=== PATIENT | male | born 1980 | race Asian ===

== ENCOUNTER 2016-08-14 14:54 | Inpatient (IN) | payer OTHER ==
[2016-08-14] VITALS (8 sets, daily range): BP systolic 106–128; BP diastolic 57–83; PULSE 58–88; RESP 13–18; O2SAT 96–99
[~2016-08-14] VITALS: Ht 167.6 cm; Wt 83.3 kg
[~2016-08-14 14:54] MED LIST: Dexamethasone 4 mg/mL Inj ONE; Glycopyrrolate 0.2 MG/ML 1mL Inj ONE; Neostigmine 1 mg/mL 10 mL Inj ONE; Ondansetron 2 mg/mL 2 mL Inj ONE; Propofol 10,000 mCg/mL 20 mL Inj ONE; Rocuronium 10 mg/mL 5 mL Inj ONE; Succinylcholine Chloride 20 mg/mL 5 mL Inj ONE; fentaNYL-PF 50 mCg/mL 2 mL Inj ONE
--- NOTE | 2016-08-14 15:49 | ED.REPORT ---
HPI-Abd Pain M Under 40 Date of Service Aug 14, 2016 ED Provider: Lorenzo Rincon DO The patient is a healthy 35 year old male who presents to the ED from Urgent Care with RLQ abdominal pain concerning for appendicitis onset four days ago. The patient also reports decreased appetite. He denies other symptoms. The patient had a normal bowel movement today. His CT scan from indicated "Inflammatory changes around the cecum and appendix most consistent with appendicitis probably rupture or periappendiceal abscess." At the patient was found to have a pulse of 89, a respiration rate of 20, and a temperature of 99.2. His CMP was normal and his CBC was remarkable for a WBC of 11.7. His Lipase was normal and his CRP was 8.1. The patient's last meal was last night. Nursing Notes Stated Complaint: APPENDECTOMY/SENT FROM URGENT CARE Chief Complaint: Male Abdominal Pain Nursing Notes Reviewed: Yes Allergies: Coded Allergies: No Known Allergies (Unverified , 08/14/16) No Active Prescriptions or Reported Meds General Time Seen by MD: 15:29 Chief Complaint Abdominal pain Hx Obtained From: Patient Arrived By: Walk-in Sudden in Onset?: No Onset Occurred: 4 days ago Symptom Duration: Since onset Location: : RLQ Quality: Painful Severity: Current: Moderate Severity: Maximum: Moderate Pertinent Negative: Relieved by nothing Recent Healthcare: Recent doctor visit Past Medical History Past Medical History None reported Past Surgical History Cyst removed from back of ear/neck Smoking History Never Smoker Social History Other Social History: Good social support Occupation [employer] Ambulatory Status Independent Review of Systems Review of Systems Note: + Decreased appetite Constitutional: Denies: Fever Respiratory: Denies: Non-productive cough, Shortness of breath GI: Reports: Abdominal pain (RLQ), Denies: Diarrhea, Vomiting Complete sys rev & neg: except as marked. Physical Exam Initial Vital Signs Vital Signs (First) Date Time Temp Pulse Resp B/P Pulse Ox O2 Delivery O2 Flow Rate FiO2 08/14/16 15:34 36.8 88 16 128/83 96 Room Air Initial VS: Reviewed Head / Eyes: Atraumatic, Normocephalic ENT: Conjunctiva normal, No scleral icterus Neck: Supple, Full range of motion Skin: Warm, Dry, No cyanosis Neurologic: Alert, Oriented, Nonfocal Psychiatric: Mood/affect normal, Behavior normal, Normal thought content General/Constitutional: Awake, Alert, No acute distress Respiratory / Chest: Breath sounds NL, Breath sounds = bilat, No respiratory distress Cardiovascular: Heart rate NL, Regular rhythm, Heart sounds NL Abdomen: Soft, No guarding, No rebound Tenderness/Guarding/Rebound: Positive: Tender RLQ... Interpretation & Diagnostics CT ABDOMEN AND PELVIS W/ IV AND ORAL CONTRAST from Urgent Care 08/14/16: IMPRESSION: Inflammatory changes around the cecum and appendix most consistent with appendicitis probably rupture or periappendiceal abscess and small amount of free fluid in the cul-de-sac. Dictated by: Arnie Worrell M.D. on 08/14/2016 at 13:34 on 08/14/2016 at 13:27 Dr. Jacobs is aware of these findings Lab Results Interpretation Result Diagram: 08/16/16 0440 Re-Eval/Medical Decision Med Decision/Clinical Course 35-year-old male with an unremarkable past medical history presents with appendicitis. There are no signs of sepsis at this time. CT was remarkable for possible perforation versus periappendiceal abscess. Patient was treated with Cipro and Flagyl while waiting for surgery. took the patient to the OR directly from the ER. Re-Evaluation/Progress #1: Time of Eval: 16:24 Patient Status: Condition improved Re-Evaluation/Progress Note: Patient rechecked. Discussed plan for surgery consult. Re-Evaluation/Progress #2: Time of Eval: 17:35 Patient Status: Condition improved Re-Evaluation/Progress Note: Discussed with patient surgical consult, diagnosis, and plan for admission to the OR. Patient agrees with plan for care and all questions were addressed. Consultation : Referral / Consult Name: Kip Ryan MD Consulted With: Surgeon Call Returned at: 17:18 [employer]: Agrees with eval, Agrees with plan, Accepts admit Note: Patient was evaluated by Dr. Ryan. He will be taken directly to the OR. Counseled Regarding: Diagnosis, Need for admission Patient Discharge & Departure Primary Impression: Appendicitis Appendicitis type: acute appendicitis Acute appendicitis type: with localized peritonitis Qualified Code: K35.3 - Acute appendicitis with localized peritonitis Additional Impressions: Leukocytosis Right lower quadrant abdominal pain Disposition: ADMITTED TO HOSPITAL Discharge Condition All VS Reviewed: Yes Condition: Stable Referrals: NOPCP (PCP) Scribe Attestation Portions of this note were transcribed by Barbara Jordan Dr. Andelin, personally performed the history, physical exam, and medical decision-making; I reviewed and confirmed the accuracy of the information in the transcribed note. Signed by: Kyung Rao, 08/14/2016, 22:15 Lorenzo Rincon DO Aug 14, 2016 15:49 BARBARA ELIZABETH Aug 14, 2016 15:56
[2016-08-14] MEDS ORDERED: 0.9% Sodium Chloride 1,000 ML IV ONE (16:26)
[2016-08-14] MEDS ORDERED: Ciprofloxacin Inj 500 MG in IV Premix 1 EACH IV ONE (16:30)
[2016-08-14] MEDS ORDERED: metroNIDAZOLE Inj 500 MG in IV Premix 1 EACH IV ONE (16:30)
[2016-08-14] MEDS ORDERED: levoFLOXacin Inj 750 MG in IV Premix 1 EACH IV ONE (16:40)
--- NOTE | 2016-08-14 18:20 | NUR ---
ADMIT Please see to current admission info. Pt was originally a direct admit from urgent care then had to go to ER and be admitted through ER. Admission was already complete prior to back tracking to ER.
--- NOTE | 2016-08-14 18:38 | HP ---
[address] [address] HISTORY AND PHYSICAL PATIENT: AMBIKA HERNANDES : 1980 MR#: [id number] ADMIT: 08/14/2016 JOB ID: [id number] CHIEF COMPLAINT/IDENTIFICATION: This is a 35-year-old man with appendicitis. HISTORY OF PRESENT ILLNESS: The patient noted onset of right lower quadrant pain and no other symptoms beginning Tuesday and has progressively gotten worse. No fever, no nausea, no vomiting. No diarrhea. No chills. He was seen in urgent care, where a CAT scan was used to diagnosis him with appendicitis. PAST MEDICAL HISTORY: Unremarkable. MEDICATIONS: None. ALLERGIES: No known drug allergies. 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 He is in the emergency department with his parents, who will be able to help him out with any surgical recovery. FAMILY HISTORY: Noncontributory. REVIEW OF SYSTEMS: Negative. PHYSICAL EXAMINATION: Afebrile, pulse is 83. Blood pressure is 128/83. He is in no acute distress. Sclerae are clear. Neck is supple. Lungs are clear. Heart sounds are regular. He has mild right lower quadrant tenderness to palpation with some fullness. LABORATORY DATA: White count is 11.5, otherwise normal labs. IMAGING: He has CAT scan that I reviewed, both the report and the images. Findings are consistent with appendicitis, though he does have a fair amount of inflammation around the cecum. IMPRESSION AND PLAN: I believe he likely has appendicitis and we have talked about his options for treatment. I have recommended laparoscopic appendectomy, though we have discussed the option of nonoperative management with antibiotics. He will follow my recommendation and we will proceed with laparoscopic appendectomy later today.
[2016-08-14] MEDS ORDERED: Lactated Ringer's 1,000 ML IV SCH (20:12)
[2016-08-14] MEDS ORDERED: Lactated Ringer's 500 ML IV PRN (20:12)
[2016-08-14] MEDS ORDERED: fentaNYL-PF 50 mCg/mL 2 mL Inj IVPUSH PRN (20:15)
[2016-08-14] MEDS ORDERED: Phenylephrine 10,000 mCg/mL Inj IVPUSH PRN (20:15)
[2016-08-14] MEDS ORDERED: Ondansetron 2 mg/mL 2 mL Inj IVPUSH PRN ×2 (20:15→22:50)
[2016-08-14] MEDS ORDERED: EPHEDrine Sulfate 50 mg/mL Inj IVPUSH PRN (20:15)
[2016-08-14] MEDS ORDERED: MetoCLOpramide 5 mg/mL 2 mL Inj IVPUSH PRN (20:15)
[2016-08-14] MEDS ORDERED: HYDROmorphone 1 mg/mL Inj IVPUSH PRN (20:15)
[2016-08-14] MEDS ORDERED: Dexamethasone 4 mg/mL Inj IVPUSH PRN (20:15)
--- NOTE | 2016-08-14 21:41 | PCM.HPANE ---
Patient Data Surgeon Admitting Provider:Kip Ryan MD Attending Provider:Kpi Ryan MD Primary Care Physician:Nopkalpesh Other Provider: Reason for Visit Appendicitis Ht/WT & BMI Height (Feet): 5 Height (Inches): 6 Weight (Kilograms): 77.27 Body Mass Index Allergies Coded Allergies: No Known Allergies (Unverified , 08/14/16) Past Anesthesia History Anesthesia History: Denies:: Abnormal Airway, Anesthesia Reactions, Difficult Intubation, Fam Anesthesia Reaction, Fam Malignant Hypertherm, Malignant Hyperthermia Diabetes History Hx Diabetes?: No MRSA MRSA: No Medications No Active Prescriptions or Reported Meds History History of ENT Problems?: No HEENT History: Denies:: Cataracts Dysphagia Sinus Problem Denture Type: None Teeth Condition: Within Normal Limits Hx of Heart Problems?: No Cardiovascular History: Denies:: Congestive Heart Failure Hypertension Hx of Respiratory Problem?: No Respiratory History: Denies:: Tuberculosis Hx Neurologic Problems?: No Hx of GI Problems?: No Other History/Comment Appendicitis Hx of Problems?: No Genitourinary History: Denies:: Kidney Stones Urinary Tract Infection Male Hx: Denies:: Prostate Problems Scrotal Mass Testicular Surgery Hx Musculoskeletal Problems?: No Hx of Psycho/Social Problems?: No Hx Surgeries?: Yes (cyst removed back of ear/neck) Hx Any Other Health Problems?: No Other History: Denies:: Cancer Hospitalization Thyroid Disease History Blood Transfusions: Denies:: Blood Transfuse Reaction Blood Transfusions Hx Diabetes: No Hx Alcohol Use: NoHx Substance Use: No Smoking Status: Never Smoker Have You Smoked inLast 12 mo: No Stop/Bang Treated for Sleep Apnea?: No Do You Have a CPAP Machine?: No Risk Assessment Category Category 1A: Patient has history of documented sleep apnea, and HAS NOT received any narcotic, sedative or anesthesia administration during this stay. Category 1B: Patient has history of documented sleep apnea, and HAS received any narcotic , sedative or anesthesia administration during this stay Category 2: Patient has SUSPECTED Obstructive Sleep Apnea, and HAS received any narcotic , sedative or anesthesia administration during this stay. Category 3: Patient has SUSPECTED Obstructive Sleep Apnea and HAS NOT received narcotic, sedative or anesthesia administration during this stay. Category 4: Outpatient in Procedural Areas with known sleep apnea or who screen positive for High Risk via the STOP/BANG questionnaire. Exam Exam Vital Signs Vital Signs Date Time Temp Pulse Resp B/P Pulse Ox O2 Delivery O2 Flow Rate FiO2 08/14/16 20:55 37.1 82 16 122/70 99 Room Air 08/14/16 17:58 37.2 83 16 118/69 98 Room Air 08/14/16 15:34 36.8 88 16 128/83 96 Room Air General Appearance: Alert, Oriented X3, Cooperative, No Acute Distress HEENT/AIRWAY: MP 2 Lungs: Clear to Auscultation, Normal Air Movement Heart: Exam Unremarkable, Regular Rate/Rhythm, No Murmurs/Rubs/Gallops Meds/Labs/Diagnostics Admission Meds Current Medications Sodium Chloride 1,000 ml @ 0 mls/hr Q0M ONCE IV Last administered on 16:48; Start 08/14/16 at 16:26; Stop 08/14/16 at 16:28; Status DC Metronidazole/ Sodium Chloride 500 mg/Premix 100 ml @ 200 mls/hr ONCE ONCE IV Last administered on 08/14/16 16:49; Start 08/14/16 at 16:30; Stop 08/14/16 at 16:59; Status DC Levofloxacin/ Dextrose 750 mg/ Premix 150 ml @ 150 mls/hr ONCE ONCE IV Last administered on 08/14/16 17:30; Start 08/14/16 at 16:40; Stop 08/14/16 at 17:39 ; Status DC Lactated Ringer's (Lr) 1,000 ml @ 120 mls/hr Q8H20M IV Last administered on 20:54; Start 08/14/16 at 20:12; Stop 08/15/16 at 04:11 Plan Impression Patient chart reviewed, patient interviewed and anesthestic plan with risks, benefits, and alternatives discussed, and informed consent obtained. ASA Physical Status: ASA2 Mod Systemic Disease Anesthetic Plan: GA Bene/Risks/Altern/Consents: Yes HP Complete Prior to Induction: Yes Kip Bunch MD Aug 14, 2016 21:41
[2016-08-14] MEDS ORDERED: Lactated Ringer's 1,000 ML IV ONE (21:48)
[2016-08-14] MEDS ORDERED: Bupivacaine-MPF 0.5% W/EPI 30 mL Inj INFILTRATE ONE (22:06)
[2016-08-14] MEDS ORDERED: Acetaminophen IV 1,000 MG in IV Premix 1 EACH IV PRN (22:50)
[2016-08-14] MEDS ORDERED: diphenhydrAMINE 25 mg Capsule PO PRN (22:50)
--- NOTE | 2016-08-14 22:55 | PCM.ANEP1 ---
Post Anesthesia PACU Phase 1 Assessment Vital Signs Vital Signs Date Time Temp Pulse Resp B/P Pulse Ox O2 Delivery O2 Flow Rate FiO2 08/14/16 22:50 36.5 60 17 120/68 96 Room Air 08/14/16 20:55 37.1 82 16 122/70 99 Room Air 08/14/16 17:58 37.2 83 16 118/69 98 Room Air 08/14/16 15:34 36.8 88 16 128/83 96 Room Air Anesthetic Administered: GA Level of Alertness: Sleepy, easy to arouse ORTEGA's with Equal Strength: Yes Pain: No Nausea or Vomiting: No CV Function & Hydration Stable: Yes Airway Device: Oxygen Delivery: Room Air Lungs: Clear to Auscultation, Normal Air Movement Dermatome Level: Full Sensation PACU Phase 2 Assessment Complications: No Follow up Care: N/A Patient Instructions Provided: N/A Kip Bunch MD Aug 14, 2016 22:55
[2016-08-14] MEDS: Lactated Ringer's 1,000 ML IV SCH (23:22)
--- NOTE | 2016-08-14 23:50 | NUR ---
Post Op Patient to room 1002 around 2315 from PACU. Able to scoot from OR stretcher to OSC bed independently. Sleepy, but A&Ox3, answering questions appropriately. States pain is tolerable: "I could sleep through this." IV patent. Family @ bedside. Oriented to room and call light. Addendum: 08/15/16 at 0531 by SONAL CHONG RN Patient unable to void so far this shift. Refusing offer to bladder scan/possible Kirkpatrick at this point. Wants to drink more water and try to pee again on his own, stating, "he feels a bit dehydrated."
[2016-08-15] MEDS: Piperacillin-Tazo 3.375 Gm Inj 3.375 GM in Dextrose 5% Minibag Plus 50 ML IV SCH ×3 (00:29→15:58)
[2016-08-15 04:07] LABS: BASOPHILS % (AUTO) 0.1 % (0-3); EOSINOPHILS % (AUTO) 0 % (0-5); Mean Corpuscular Hemoglobin 29.4 pg (27.0-35.0); Mean Corpuscular Volume 89.5 fL (81-100); NEUTROPHILS % (AUTO) 87.3 % (40-74); Platelet Count 198 bil/L (150-400)
[2016-08-15 05:11] VITALS: BP 116/66; PULSE 92; RESP 18; O2SAT 98
--- NOTE | 2016-08-15 07:56 | NUR ---
Activity Patient ambulated to restroom, SBA. Given urinal, explained that if he did not void, a catheter would need to be placed. He stated he did not want that and would try void.
[2016-08-15 09:07] VITALS: BP 114/68; PULSE 74; RESP 16; O2SAT 96
[2016-08-15] MEDS: Lactated Ringer's 1,000 ML IV SCH (12:04)
[2016-08-15 13:12] VITALS: BP 120/77; PULSE 79; RESP 16; O2SAT 97
--- NOTE | 2016-08-15 13:33 | NUR ---
Social Work- Brief Note/ Readiness for Discharge Data: EMR reviewed. Pt is a 35 year old male admitted 08/14/16 for appendicitis per H&P. Pt is not medically ready for discharge today, likely to discharge in 1-2 more days. Pt's insurance is [facility]. Pt has no PCP. Pt's NOK is Sebastien Kramer, father, . SW met with pt at bedside regarding discharge plan, SW role explained. Pt alert and oriented x3. Pt resides in [place] in a home where he is independent at baseline. Pt drives. Pt has no PCP listed, pt requested that SW make PCP appointment at [facility] in [place]. [facility] is closed, as it is a weekend, but SW to follow up with this request Tuesday. Pt to discharge home with parents to transport via POV. No discharge needs identified at this time. SW will continue to follow. Assessment: Pt who is independent at baseline. Plan: SW to follow up with [facility] Tue to schedule PCP appointment. Pt to discharge home with parents to transport via POV. No discharge needs identified at this time. SW will continue to follow. SOPHIA Mayfield
--- NOTE | 2016-08-15 14:39 | PROG NOTE ---
[address] [address] PROGRESS NOTE PATIENT: AMBIKA HERNANDES : 1980 MR#: [id number] ADMIT: 08/14/2016 JOB ID: [id number] DATE: 08/15/2016 NOTE: Postop day one laparoscopic appendectomy for perforated appendicitis. T-max 36.9, vital signs are within normal limits. As expected, he is having more pain postoperatively than he did preop. Lawrence-Coley drain is putting out serosanguineous fluid and has had 40 cc since midnight. On exam, his abdomen is soft, his incisions are without sign of infection. White count is down to 12.6. His hematocrit is 44. IMPRESSION/PLAN: Doing well. We have reviewed the intraoperative findings. He will need to be on IV antibiotics at least until tomorrow. If his white count is down to normal, he can be switched over to oral antibiotics and even discharged, though I would like him to have the drain in at least until the middle of the week until drainage is minimal. I think he is at high risk for postoperative abscess and I discussed this with the patient.
--- NOTE | 2016-08-15 15:12 | OP ---
[address] [address] OPERATIVE REPORT PATIENT: AMBIKA HERNANDES : 1980 MR#: [id number] ADMIT: 08/14/2016 JOB ID: [id number] DATE OF SURGERY: 08/14/2016 PREOPERATIVE DIAGNOSIS(ES): Appendicitis. POSTOPERATIVE DIAGNOSIS(ES): Appendicitis with perforation. SURGEON: Kip Ryan MD. NATUROPATHIC PHYSICIAN: aNdine Butler RN FA INDICATIONS: A 35-year-old man with signs and symptoms consistent with appendicitis. By history and CT scan, there is some consideration of perforation and option of antibiotic treatment rather than immediate operation was discussed with the patient, though recommendation for surgery was made. FINDINGS: 1. A surgical asst was necessary for camera operation. 2. Patient did have perforated appendicitis. 3. Successful laparoscopic appendectomy for perforated appendicitis, including amputation of appendix that was found in pieces. Drain was left, as described below. PROCEDURE: The patient brought to the operating room. SCOAP protocol was followed. He received perioperative antibiotics within an hour of the incision. Veress needle was placed. Obtained access. We placed three ports. There was no free fluid. The appendix was walled off by the terminal ileum and cecum. We peeled the terminal ileum off and encountered a pus pocket which was controlled with the suction. There was not widespread spillage of the pus. We now proceeded to use a combination of blunt and cautery dissection to identify the appendix that was basically in two pieces. The tip was removed 1st and then the proximal appendix was mobilized including part of the cecum and we used the endoscopic stapler to amputate the appendix and the mesoappendix at its base. Specimen was removed in a bag to avoid wound contamination. We then proceeded with a copious amount of irrigation, keeping almost all of the irrigation locally, as there had not been widespread signs of spread nor did he have diffuse peritonitis preoperatively. We suctioned out all of our irrigant and then placed a 19-Indian Lawrence-Coley drain down in the pelvis, looping up with the tip in the area of the abscess. We removed our ports, secured the drain with a nylon suture, and closed the wounds with absorbable suture. The patient tolerated the procedure well.
[2016-08-15 16:55] VITALS: BP 114/71; PULSE 74; RESP 16; O2SAT 97
[2016-08-15 21:00] VITALS: BP 104/63; PULSE 71; RESP 16; O2SAT 99
[2016-08-16 00:49] VITALS: BP 109/62; PULSE 72; RESP 16; O2SAT 95
[2016-08-16] MEDS: Piperacillin-Tazo 3.375 Gm Inj 3.375 GM in Dextrose 5% Minibag Plus 50 ML IV SCH ×3 (00:49→17:01)
--- NOTE | 2016-08-16 03:45 | NUR ---
Activity Pt reports little to no pain 03/16 and has denied need for pain meds this shift. Pt was up to bathroom, independently and steady on feet. The umbilical dressing was changed with gauze and tegaderm, the other 2 lap sites were CDI. SUSAN drain intact and has had out 20 ml sanguinous drainage so far. Pt reporting minimal gas and denies nausea.
[2016-08-16] MEDS: Lactated Ringer's 1,000 ML IV SCH ×3 (04:57→23:20)
[2016-08-16 05:32] VITALS: BP 111/71; PULSE 77; RESP 18; O2SAT 94
[2016-08-16 05:54] LABS: BASOPHILS % (AUTO) 0.2 % (0-3); EOSINOPHILS % (AUTO) 1.1 % (0-5); Mean Corpuscular Hemoglobin 29.8 pg (27.0-35.0); Mean Corpuscular Volume 90.6 fL (81-100); NEUTROPHILS % (AUTO) 63.2 % (40-74); Platelet Count 196 bil/L (150-400)
[2016-08-16 08:56] VITALS: BP 112/66; PULSE 92; RESP 19; O2SAT 97
--- NOTE | 2016-08-16 09:22 | NUR ---
GI Abd round and slightly firm. Pt states it looks and feels "bloated." Bowel tones present, but hypoactive. Pt denies flatus and bowel movement. Complains of abd pain 6/10, "worse than before the surgery." Pt unable to describe nature of pain, but indicates entire abdomen. Tolerates diet and denies any increased pain or nausea with eating. Dressing CDI, SUSAN draining sanguineous fluid. Emptied 90cc at 07:50. Ambulated in room and up to chair for breakfast, plan to ambulate in hallways this morning.
--- NOTE | 2016-08-16 10:02 | PCM.PNSURG ---
Subjective Date of Service: Aug 16, 2016 Date of Service: Aug 16, 2016 Visit Information: Reason for Visit Appendicitis Surgery/Surgery Date Post-Op Day # 2 s/p lap appy Date of Admission: Aug 14, 2016 at 18:03 Hospital Day # Subjective: Patient reports continued abdominal discomfort. Tolerating po. No n/v. Feels bloated. Denies f/c. Drain output continues high. Postop General: No Shortness of Breath, No Chest Pain Gastrointestinal: Tolerating Oral Feedings, No N/V Pain Management: PO, Continued Pain Issues Objective Vital Sign- Last 8 Hours Date Time Temp Pulse Resp B/P Pulse Ox O2 Delivery O2 Flow Rate FiO2 08/16/16 08:56 36.7 92 19 112/66 97 Room Air 08/16/16 05:32 37.1 77 18 111/71 94 Room Air Intake and Output- Last 8 Hour 08/16/16 Cumulative From/Thru 07:00 08/14/16 15:34 - 08/16/16 05:32 Intake Total 1421 ml 4854 ml Output Total 1120 ml 3330 ml Balance 301 ml 1524 ml Intake Oral 550 ml 1810 ml IV Total 871 ml 3044 ml Output Urine Total 1100 ml 3075 ml Drainage Total 20 ml 255 ml # Voids 0 # Bowel Movements 0 0 General: Alert, Oriented X3, Cooperative, No Acute Distress (stoic) Neck: Supple Lungs: Clear to Auscultation Heart: Regular Rate/Rhythm Abdomen: Firm, Guarding (involuntary), Distended (mild distension), Normoactive bowel tones SURGICAL WOUND : Wound General Appearence: Steri Strips, Intact, Well Approximated, Incision Healing Dressing & Drainage Status: Intact Wound Drainage Type: SUSAN Drain #1 (serosanguinous) Result Diagram: 08/16/16 0440 Assessment & Plan Impression slow postoperative course s/p lap appy for Appendicitis with perforation - no leukocytosis today - VSS - still feels uncomfortable - drain output remains high; will leave in at least thru Wed - keep another day - am labs - continue iv abx then convert to oral for 10-14 d total course patient satisfied with plan Problems: Cezar Rodriguez PA-C Aug 16, 2016 10:01
[2016-08-16 14:01] VITALS: BP 118/79; PULSE 74; RESP 20; O2SAT 98
--- NOTE | 2016-08-16 14:37 | NUR ---
Scheduled hospital follow at [facility] August check in at 1040AM for 1050AM appointment with Updated ANNUAL GIVING DIRECTOR
--- NOTE | 2016-08-16 16:00 | NUR ---
Social Work: Readiness for Discharge D: EMR reviewed. Pt is on day 2 of hospitalization. Per MD in AM multi-disciplinary rounds, pt is likely to discharge tomorrow. MARKIE received MD order to schedule new PCP appointment. MARKIE new PCP appointment at [facility] August check in at 1040AM for 1050AM appointment with . MARKIE updated pt with time/location/phone number. Pt was agreeable to appointment. Pt's parents will provide transport home via POV when pt is medically stable. MARKIE does not anticipate any discharge needs at this time but will continue to follow if needs arise. A: Pt who is independent at baseline P: Pt's parents will provide transport home via POV when pt is medically stable. MARKIE does not anticipate any discharge needs at this time but will continue to follow if needs arise. SOPHIA Hassan
[2016-08-16 20:30] VITALS: BP 131/89; PULSE 80; RESP 18; O2SAT 98
[2016-08-16] MEDS ORDERED: HYDROmorphone 1 mg/mL Inj IVPUSH PRN (23:15)
[2016-08-17] MEDS: Piperacillin-Tazo 3.375 Gm Inj 3.375 GM in Dextrose 5% Minibag Plus 50 ML IV SCH ×3 (01:16→16:40)
--- NOTE | 2016-08-17 02:17 | NUR ---
Vomiting/pain Pt reported that he projectile vomited x3 into the garbage can. Pt reporting pain continues to be 6/10 despite oxycodone given earlier. Zofran 4mg IV push given and pt reporting relief. MD made aware of vomiting, abdominal distension and pain. New orders received for pt to be NPO and Dilaudid 0.5mg IVP to given as well. Pt now resting and appears more comfortable.
[2016-08-17 05:50] LABS: BASOPHILS % (AUTO) 0.2 % (0-3); EOSINOPHILS % (AUTO) 1.4 % (0-5); MONOCYTES % (AUTO) 9.4 % (4-12); Mean Corpuscular Hemoglobin 29.5 pg (27.0-35.0); Mean Corpuscular Volume 90.6 fL (81-100); NEUTROPHILS % (AUTO) 72.5 % (40-74); Platelet Count 254 bil/L (150-400)
[2016-08-17 06:22] VITALS: BP 110/74; PULSE 87; RESP 16; O2SAT 98
[2016-08-17 09:38] VITALS: BP 117/77; PULSE 80; RESP 18; O2SAT 98
--- NOTE | 2016-08-17 09:48 | PCM.PNSURG ---
Subjective Date of Service: Aug 17, 2016 Date of Service: Aug 17, 2016 Visit Information: Reason for Visit Appendicitis Surgery/Surgery Date Post-Op Day # Date of Admission: Aug 14, 2016 at 18:03 Hospital Day # Subjective: Patient is seen in surgical follow-up, he is POD #3 status post laparoscopic appendectomy for perforated appendicitis. He had some nausea and vomiting early this AM which seems to be resolved with antiemetics. He currently denies any nausea. He is now NPO but feel;s like he could tolerate some liquids. He has been OOB and ambulating. He is passing flatus and feels like he could have a BM and wants to try. He complain of mild LLQ pain only. Pain is well controlled with minimal narcotics (last dose was IV Dilaudid around midnight). Denies difficulty urinating, SOB and chest pain. Gastrointestinal: Passing Flatus Pain Management: Good Pain Control Postop Activity: Ambulating Independently Objective Objective Pleasant gentleman, NAD - his parents are at the bedside and appropriately concerned with recent vomiting Vital Sign- Last 8 Hours Date Time Temp Pulse Resp B/P Pulse Ox O2 Delivery O2 Flow Rate FiO2 08/17/16 09:38 36.6 80 18 117/77 98 Room Air 08/17/16 06:22 36.7 87 16 110/74 98 Room Air Intake and Output- Last 8 Hour 08/17/16 Cumulative From/Thru 07:00 08/14/16 15:34 - 08/17/16 06:22 Intake Total 1351 ml 7491 ml Output Total 1530 ml 6200 ml Balance -179 ml 1291 ml Intake Oral 0 ml 3096 ml IV Total 1351 ml 4395 ml Output Urine Total 800 ml 5025 ml Emesis 450 ml 450 ml Drainage Total 280 ml 725 ml # Voids 0 # Bowel Movements 0 General: Alert, Oriented X3, Cooperative, No Acute Distress Lungs: Clear to Auscultation, Normal Air Movement Heart: Regular Rate/Rhythm Abdomen: Soft, Appropriately tender, Normoactive bowel tones, Other ( appropriate LLQ tenderness without rebound or referred pain, some vol guarding around drain port, all 3 port sites with dsg and min drainage, SUSAN high output) SURGICAL WOUND : Wound General Appearence: No Erythema, No Discharge, No Inflammatory Changes , Wound under dressing (op site with telfa and periwound easily visible) Dressing & Drainage Status: Intact Wound Drainage Type: SUSAN Drain #1 (serous - but 280ml overnight (210ml/24 hr yesterday)) Extremities: Warm, Thigh&Calf Soft/Nontender, Other (no edema in B/L lower ext) Neuro: Grossly Neurologically Intact, Normal Speech Catheters: None Result Diagram: 08/17/16 0500 08/17/16 0500 Assessment & Plan Impression 35 yo usual healthy male, POD#3 s/p lap appy for perforated appendicitis who had episode of nausea/vomiting this AM and has high output SUSAN (serous). Labs are within normal limits this AM, WBC ok. Day #4 of Zosyn. Doing well now, will allow to advance diet and re-check Problems: Plan -Encourage OOB/ambulate -Clear Liquids and possible advance as tolerated, will recheck later -Possible D/C home later or tomorrow -SUSAN to remain in for now, if d/c'd tomorrow might remove drain first if output decreases -Continue Zosyn but could probably convert to oral antibiotics tomorrow if able to discharge Re-checked patient at 1400 - no complaints, no N/V with clears, will advance diet as tolerated. SUSAN putting out high volume today (nurse report almost 100ml/ he for a few hours), however this was after activity and it does appear serous. Since he has not even tried full liquids at this point, and he is still getting IV antibiotics, then will reconsider D/C home for tomorrow AM. SUSAN may have to stay in after discharge (informed patient) and he might need another few days of antibiotics. Pain well controlled and he had a BM after I saw him this AM. Pain Management: If N/V resolve, would encourage PO Oxycodone vs IV Dilaudid VTE Prophylaxis: Sub-Q Heparin (Unfractionated), Other (will add Heparin) Lia Klein PAC Aug 17, 2016 09:48
[2016-08-17] MEDS: Heparin 5,000 Unit/mL Inj SUBQ SCH ×2 (10:47→17:20)
[2016-08-17 13:24] VITALS: BP 106/74; PULSE 80; RESP 18; O2SAT 98
--- NOTE | 2016-08-17 14:09 | NUR ---
Post op progress Abd round and distended, although less so than yesterday. Pt denies nausea, states pain is "all right. This is the best I've felt so far." Per REINFORCED IRONWORKER, 2 liquid green bowel movements. Tolerates small sips clear fluids, but states he doesn't have much appetite. SUSAN draining copious serous fluid. Pt up to chair for much of day and ambulates in room and hallway.
--- NOTE | 2016-08-17 15:06 | PATH ---
SURGICAL PATHOLOGY Attending Physician:Kip Ryan MD CASE STATUS: Signed Out PATIENT NAME: AMBIKA HERNANDES PID: [id number] : 1980 DATE COLLECTED:08/14/2016 00:00 SPECIMEN: Appendix CLINICAL HISTORY: APPENDICITIS, RUPTURED 1. APPENDIX FINAL DIAGNOSIS: 1.APPENDIX: ACUTE NECROTIZING APPENDICITIS, APPARENTLY RUPTURED. ICD10 K35.3 GROSS DESCRIPTION: Received in formalin, labeled with the patient' s name and "appendix", is one irregular-shaped appendix measuring 7.0 x 1.5 x 1.0 cm. The serosal surface is rough and shaggy, making the specimen difficult to orient. Account Development Associate sections are submitted in cassette 1A. ([id number]) MICRO DESCRIPTION: See diagnosis. ICD-9 CODES: CPT CODES: 1: 59531 Electronically Signed Out Vamsi Brown MD [facility] Pathology [facility] [address], [place] [address] Technical component performed at [facility], [facility] [address], [place], [address]
[2016-08-17] MEDS: Lactated Ringer's 1,000 ML IV SCH (16:42)
[2016-08-17 20:17] VITALS: BP_SYST 109; BP_DIAS 7; BP_DIAS 73; PULSE 61; RESP 18; O2SAT 97
[2016-08-18] MEDS: Piperacillin-Tazo 3.375 Gm Inj 3.375 GM in Dextrose 5% Minibag Plus 50 ML IV SCH ×2 (01:22→09:02)
[2016-08-18] MEDS: Heparin 5,000 Unit/mL Inj SUBQ SCH ×2 (01:22→09:57)
--- NOTE | 2016-08-18 04:00 | NUR ---
Activity Pt continues to deny pain or nausea and reports feeling "all right" Pt is tolerating a full liquid diet. Pt reporting that he is also passing gas. Encouraged pt to ambulate multiple times and he did a half lap in the xiao this shift. SUSAN draining serous drainage with decreased output from day shift. Addendum: 08/18/16 at 0417 by GISELA KONG RN 80cc of serous drainage from SUSAN this shift.
[2016-08-18 04:09] VITALS: BP 103/65; PULSE 59; RESP 18; O2SAT 97
[2016-08-18] MEDS: Lactated Ringer's 1,000 ML IV SCH (06:02)
[2016-08-18 09:22] VITALS: BP 103/67; PULSE 73; RESP 18; O2SAT 98
--- NOTE | 2016-08-18 09:34 | PCM.PNSURG ---
Subjective Date of Service: Aug 18, 2016 Date of Service: Aug 18, 2016 Visit Information: Reason for Visit Appendicitis Surgery/Surgery Date Post-Op Day # 3 s/p lap appy for perf appendix Date of Admission: Aug 14, 2016 at 18:03 Hospital Day # Subjective: Patient reports feeling better without nausea or vomiting. No abdominal pain with ambulation and only with transfers. Afebrile and no subjective fevers, chest pain or sob. Tolerating liquids. Bowels functioning. Postop General: No Complaints, No Shortness of Breath, No Chest Pain Gastrointestinal: Tolerating Oral Feedings, No N/V, Passing Stool Pain Management: PO, IV Push (dilaudid), Good Pain Control Postop Activity: Ambulating Independently Objective Vital Sign- Last 8 Hours Date Time Temp Pulse Resp B/P Pulse Ox O2 Delivery O2 Flow Rate FiO2 08/18/16 04:09 36.5 59 18 103/65 97 Room Air Intake and Output- Last 8 Hour 08/18/16 Cumulative From/Thru 07:00 08/14/16 15:34 - 08/18/16 05:30 Intake Total 1441 ml 08537 ml Output Total 780 ml 8062 ml Balance 661 ml 2701 ml Intake Oral 500 ml 4596 ml IV Total 941 ml 6167 ml Output Urine Total 700 ml 6325 ml Stool Total 2 ml Emesis 450 ml Drainage Total 80 ml 1285 ml # Voids 2 # Bowel Movements 0 0 General: Alert, Oriented X3 Lungs: Clear to Auscultation Heart: Regular Rate/Rhythm Abdomen: Soft, Appropriately tender, Non-distended, Normoactive bowel tones SURGICAL WOUND : Wound General Appearence: Steri Strips Wound Drainage Type: SUSAN Drain #1 Result Diagram: 08/17/16 0500 08/17/16 0500 Assessment & Plan Impression satisfactory post op course s/p lap appy for perf appendicitis POD#3. SUSAN output continues at elevated rate although clinically improved and afebrile with nml wbc. - adat - if tolerate advance diet then remove drain, discharge this pm on 7d of abx and 1 wk f/u with PA gen surg Problems: VTE Prophylaxis: Sub-Q Heparin (Unfractionated), Other (will add Heparin) Cezar Rodriguez PA-C Aug 18, 2016 09:34
--- NOTE | 2016-08-18 12:58 | PCM.DISURG ---
Surgical Discharge Instruction Date of Service Aug 18, 2016 Dates of Hospitalization Date of Hospital Admission Aug 14, 2016 at 18:03 Providers Admitting Physician: Kip Ryan MD Primary Care Physician: Nopcp Attending Physician: Kip Ryan MD Discharge Diagnosis Discharge Diagnosis Appendicitis with perforation Post Operative diagnosis Same Diet Discharge Diet: No restrictions Activity Discharge Activity-General: Try not to overdue, Balance rest and activity, No driving while taking narcotic Dressing and Incisional Care Dressing Care: Allow Steri Stripes to fall off Hygiene: May shower, DO NOT soak incision under water, NO bathtub, hot tub or whirlpool Follow Up Plan Follow Up Plan Follow up with gerneral surgery PA in 1 week. Mid-level Provider (F9): Lia Klein PAC Follow-up appointment: Weeks (1) Call your provider for: Fever, Chills, Increasing abdominal pain, Nausea, Vomiting, Wound redness, Increasing wound pain Cezar Rodriguez PA-C Aug 18, 2016 12:58
[2016-08-18] MEDS ORDERED: CIPR-231 PO (13:00)
[2016-08-18] MEDS ORDERED: OXYC1TAB24 PO (13:00)
--- NOTE | 2016-08-18 13:33 | NUR ---
Social Work: Discharge D: EMR reviewed. Pt is on day 4 of hospitalization. Pt to discharge today, discharge orders are active. SW met with pt at bedside regarding discharge plan. Pt is aware of new PCP appointment at [facility] August check in at 1040AM for 1050AM appointment with . Pt confirmed his parents will provide transport home via POV. Pt denied any questions or concerns related to discharge. No discharge needs identified. A: Pt who is independent at baseline P: Pt's parents will provide transport home via POV. No discharge needs identified. Melvi Shaffer, GAS STATION MANAGER
--- NOTE | 2016-08-18 14:20 | NUR ---
Discharge Pt d/c'd from room 1002 at 1420 home via private vehicle with family. IV d/c'd intact. SUSAN drain d/c'd intact. All discharge teaching and instructions done with pt and family at bedside. Pt verbalized understanding. Teaching done on medications and information packets given. Pt to schedule f/u apt with general surgery in 1 week. No items in the safe or in the pharmacy. All belongings with pt.
--- NOTE | 2016-08-18 16:06 | PCM.DC.SUR ---
Discharge Summary Date of Service: Aug 18, 2016 Date of Hospital Admission: Aug 14, 2016 at 18:03 Date of Operation(s): Aug 16, 2016 Date of Discharge: Aug 18, 2016 Diagnosis at Time of Discharge Appendicitis with perforation Problems: Operation laparoscopic appendectomy Brief History and Physical: The patient noted onset of right lower quadrant pain and no other symptoms beginning Tuesday and has progressively gotten worse. No fever, no nausea, no vomiting. No diarrhea. No chills. Objective Vital Sign- Last 8 Hours Date Time Temp Pulse Resp B/P Pulse Ox O2 Delivery O2 Flow Rate FiO2 08/18/16 04:09 36.5 59 18 103/65 97 Room Air Intake and Output- Last 8 Hour 08/18/16 Cumulative From/Thru 07:00 08/14/16 15:34 - 08/18/16 05:30 Intake Total 1441 ml 88796 ml Output Total 780 ml 8062 ml Balance 661 ml 2701 ml Intake Oral 500 ml 4596 ml IV Total 941 ml 6167 ml Output Urine Total 700 ml 6325 ml Stool Total 2 ml Emesis 450 ml Drainage Total 80 ml 1285 ml # Voids 2 # Bowel Movements 0 0 General: Alert, Oriented X3 Lungs: Clear to Auscultation Heart: Regular Rate/Rhythm Abdomen: Soft, Appropriately tender, Non-distended, Normoactive bowel tones SURGICAL WOUND : Wound General Appearence: Steri Strips Wound Drainage Type: SUSAN Drain #1 Result Diagram: 08/17/16 0500 08/17/16 0500 Hospital Course: He was seen in urgent care, where a CAT scan was used to diagnosis him with appendicitis. By history and CT scan, there was some consideration of perforation and option of antibiotic treatment rather than immediate operation was discussed with the patient, though recommendation for surgery was made. The patient elected to proceed with an operation and he was taken to the operating room for a laparoscopic appendectomy. Please refer to the operative notes for details. He tolerated the procedure well and was transferred tot he surgical care unit where he remained for the balance of his hospital stay. A drain was placed intraoperatively which was monitored throughout his stay. IV antibiotics were continued until discharge because of findings of a ruptured appendix intraoperatively. He continued to progress well with improved blood counts and reducing abdominal pain. On postoperative day number 2 the patient vomited and felt improved abdominal comfort with reduced bloating. He was found to tolerate a regular diet, was afebrile with normalized blood counts. He was able to ambulate without pain and drain output reduced and was serous only and then removed just prior to discharge. He was then discharged on postoperative day number 3 to home in good condition. Pathology: SPECIMEN: Appendix CLINICAL HISTORY: APPENDICITIS, RUPTURED 1. APPENDIX FINAL DIAGNOSIS: 1.APPENDIX: ACUTE NECROTIZING APPENDICITIS, APPARENTLY RUPTURED. Disposition: to home in good condition Follow-up Plan: Discharge Diet: No restrictions Discharge Activity-General: Try not to overdue, Balance rest and activity, No driving while taking narcotic Dressing Care: Allow Steri Stripes to fall off Hygiene: May shower, DO NOT soak incision under water, NO bathtub, hot tub or whirlpool Follow Up Plan Follow up with gerneral surgery PA in 1 week. Mid-level Provider (F9): Lia Klein PAC Follow-up appointment: Weeks (1) Call your provider for: Fever, Chills, Increasing abdominal pain, Nausea, Vomiting, Wound redness, Increasing wound pain Ciprofloxacin (Cipro) 500 Mg Tablet 500 MG PO BID oxyCODONE-Acetaminophen 5-325 mg (oxyCODONE-Acetaminophen 5-325 mg) 1 Each Tablet 1-2 TAB PO Q6H PRN PRN For Pain Cezar Rodriguez PA-C Aug 18, 2016 16:06
== END 2016-08-18 14:25 | disposition home or self-care (01) | DRG 340 ==
LOC: SED 14:54 → OBSVTOIN 18:03 → OSC 18:03
PROVIDERS: ADMIT Surgery; ATTEND Surgery
PROC: 0DTJ4ZZ Resection of Appendix, Percutaneous Endoscopic Approach (ICD-10-PCS; principal; 2016-08-14 19:30)
DX: K35.2 Acute appendicitis with generalized peritonitis (principal)